=== PATIENT | female | born 1940 | race Caucasian/White ===

== ENCOUNTER 2017-07-21 20:53 | Emergency (ER) | payer MEDICARE, OTHER ==
--- NOTE | 2017-07-21 22:03 | RAD ---
HISTORY: All, patellar pain COMPARISONS: None VIEWS: 2, Frontal and lateral views of the right knee FINDINGS: BONE DENSITY: There is diffuse osteopenia. BONES: There is a mildly displaced transverse fracture of the patella. JOINTS: There is no arthropathy. ALIGNMENT: There is no dislocation. SOFT TISSUES: Unremarkable. OTHER FINDINGS: None. IMPRESSION: MILDLY DISPLACED TRANSVERSE PATELLAR FRACTURE
[2017-07-21] MEDS ORDERED: HYDROcodone/ACETAMIN 5-325 MG* 1 TAB ONE (22:57)
== END 2017-07-21 23:17 | disposition home or self-care (01) ==
LOC: UCEAST 20:53
DX: S82.031A Displaced transverse fracture of right patella, initial encounter for closed fracture (principal); W01.0XXA Fall on same level from slipping, tripping and stumbling without subsequent striking against object, initial encounter; Y93.9 Activity, unspecified; Y92.9 Unspecified place or not applicable; I10 Essential (primary) hypertension; E03.9 Hypothyroidism, unspecified; E78.5 Hyperlipidemia, unspecified; K21.9 Gastro-esophageal reflux disease without esophagitis
CPT/HCPCS: 99213; G0463

== ENCOUNTER 2017-07-26 06:15 | Inpatient (IN) | payer MEDICARE, OTHER ==
--- NOTE | 2017-07-23 22:08 | HP ---
HISTORY AND PHYSICAL: DATE OF ADMISSION/SURGERY: 07/26/17 ATTENDING SURGEON: Bony Pena MD * (DICTATED BY PATRIC HOOD) REASON FOR VISIT: Displaced patellar fracture, right patella . PROCEDURE: ORIF, right patella. HISTORY OF PRESENT ILLNESS: The patient is a pleasant female who presents today for initial evaluation after falling on cinder blocks over the weekend. She was seen in the ER where x-rays confirmed she had a dislocated patellar fracture of the right knee. Dr. Pena has planned surgical intervention for 07/26/17. PAST MEDICAL HISTORY: Positive for high blood pressure, elevated cholesterol, gout, generalized arthritis, hiatal hernia with associated indigestion/GERD, hypothyroidism. The patient denies OR, stroke, or diabetes. PAST SURGICAL HISTORY: Carpal tunnel in 1982 and 2013, hysterectomy in 1993, rotator cuff in 2003, bilateral hip replacements in 2004, 2007, right hand surgery in 2005. MEDICATIONS: 1. Aspirin 81 mg daily. 2. Simvastatin 40 mg daily. 3. Omeprazole 40 mg daily. 4. Naproxen 325 mg 1 tablet twice daily. 5. Lisinopril 20 mg daily. 6. Levothyroxine 88 mcg daily. ALLERGIES: LATEX GLOVES, which causes swelling and hives. FAMILY MEDICAL HISTORY: Father of natural causes at the age of 95. Mother of natural causes at the age of 97, history of Alzheimer's disease in her mother. SOCIAL HISTORY: The patient lives alone; however, has her daughter and son close by to help. She is retired. 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 REVIEW OF SYSTEMS: General: The patient denies fevers, chills, or night sweats. HEENT: No blurred vision, double vision, sore throat, runny nose, nosebleeds, hearing changes. Cardiac: No chest pain, heart palpitations, or shortness of breath. Pulmonary: No cough. No history of COPD. GI: No nausea , vomiting, constipation, diarrhea. Positive for GERD. : Negative for urinary tract infections, kidney stones. Musculoskeletal: Positive for generalized arthritis in knees and hands. Positive for right knee pain. No prior injuries to the right knee. Neurologic: Negative for dizziness, lightheadedness. No history of prior strokes or weaknesses. No paresthesias. Integument: Negative for skin lesions. No difficulty with wound healing. No easy bruising or bleeding. Hematologic: Negative for DVTs or PEs. Infectious Disease: No history of hepatitis, HIV, VRE, or MRSA. PHYSICAL EXAMINATION GENERAL: Well appearing, in no acute distress. Alert and oriented. Appears stated age. HEENT: Normocephalic, atraumatic. EOMI. CARDIAC: Regular rate and rhythm. No murmurs, gallops, or rubs. Negative edema in bilateral lower extremities. PULMONARY: Lungs clear to auscultation bilaterally. No crackles, rhonchi or wheezes. ABDOMEN: Soft, nontender, nondistended. Positive obesity. Negative CVA tenderness bilaterally. NEUROLOGIC: Sensation grossly intact to light touch, bilateral lower extremities. Posterior tibial pulses 2+ bilaterally. Negative Homans sign bilaterally. MUSCULOSKELETAL: Right knee with diffuse swelling surrounding the knee. Ecchymosis seen on the medial aspect. Straight leg raise, unable to perform. Tenderness over the patella. Skin intact. Range of motion limited due to pain. ASSESSMENT: Displaced patellar fracture, right knee. PLAN: The patient was arranged to undergo ORIF of the right patella on . Risks and benefits of the procedure were discussed by Dr. Pena to the patient who voiced full understanding. She will have preadmission testing arranged. She will contact us with any questions or concerns that she has in the future. PATRIC HOOD [id number]/[facility] #: [id number] [facility]ITALPipo
[~2017-07-26 06:15] MED LIST: Buffered Lidocaine 0.9% SYRIN* 5 ML/SYR SYRINGE INTRADERM ONE; Dexamethasone IV* 4 MG/ML 1 ML (4 MG) IV SLOW PU ONE; Famotidine IV* 10 MG/ML 2 ML (20 mg) IV ONE
[2017-07-26] MEDS ORDERED: ceFAZolin 2 GM PREMIX (*) 50 ML IVPB ONE (06:36)
[2017-07-26] MEDS ORDERED: Dexamethasone IV* 4 MG/ML 1 ML (4 MG) ONE (06:36)
[2017-07-26] MEDS ORDERED: Buffered Lidocaine 0.9% SYRIN* 5 ML/SYR SYRINGE ONE (06:36)
[2017-07-26] MEDS ORDERED: Famotidine IV* 10 MG/ML 2 ML (20 mg) ONE (06:36)
[2017-07-26] MEDS ORDERED: Bupivacaine 0.5% SDV PF* 30 ML VIAL ONE (07:13)
[2017-07-26 07:37] LABS: Albumin 4.2 g/dL (3.2-5.2); Calcium 9.2 mg/dL (8.6-10.3); EGFR African American 61.8 (>60); Globulin 2.8 g/dL (2-4); Total Bilirubin 1.1 mg/dL (0.2-1.0)
[2017-07-26] MEDS ORDERED: Propofol* 10 MG/ML 20 ML BTL IV PUSH ONE (07:51)
[2017-07-26] MEDS ORDERED: Lidocaine 2% PF * 5 ML VIAL ONE (07:51)
[2017-07-26] MEDS ORDERED: fentaNYL* 50 MCG/ML 2 ML VIAL (100 MCG VIAL) ONE ×5 (07:56→10:11)
[2017-07-26] MEDS ORDERED: EPHEDrine (Pressors)* 50 MG/ML VIAL ONE (08:02)
[2017-07-26] MEDS ORDERED: Ondansetron INJ* 2 MG/ML VIAL ONE (08:15)
[2017-07-26] MEDS ORDERED: oxyCODONE/Acetamin 5/325 MG* TAB PO PRN ×3 (08:28→09:34)
[2017-07-26] MEDS ORDERED: PROCHLORPERAZINE INJ 5 MG/ML 2 ML VIAL IV PRN (08:28)
[2017-07-26] MEDS ORDERED: HYDROcodone/ACETAMIN 5-325 MG* 1 TAB PO PRN (08:28)
--- NOTE | 2017-07-26 09:23 | RAD ---
INDICATION: Right knee patellar fracture, trauma, ORIF COMPARISONS: July 21, 2017 TECHNIQUE: Fluoroscopy was provided for a surgical procedure. Total fluoroscopy time is: 26.9 seconds FINDINGS: Spot images demonstrate internal fixation of the patella. IMPRESSION: FLUOROSCOPY WAS PROVIDED FOR A SURGICAL PROCEDURE CPT II Codes: 6045F
[2017-07-26] MEDS ORDERED: Temazepam CAP* 15 MG PO PRN (09:34)
[2017-07-26] MEDS ORDERED: Morphine INJ* 2 MG/ML 1 ML SYRINGE (TWO MG - NEW SYRINGE VERSION) IV PRN (09:34)
[2017-07-26] MEDS ORDERED: oxyCODONE TAB* 5 MG TAB PO PRN (09:34)
[2017-07-26] MEDS ORDERED: Bisacodyl SUPP* 10 MG SUPP PR PRN (09:34)
[2017-07-26] MEDS ORDERED: diPHENhydraMINE IV* 50 MG/ML 1 ml VIAL (BENADRYL) IV PRN (09:34)
[2017-07-26] MEDS ORDERED: Ondansetron INJ* 2 MG/ML VIAL IV PRN (09:34)
[2017-07-26] MEDS: fentaNYL* 50 MCG/ML 2 ML VIAL (100 MCG VIAL) IV PRN ×2 (09:52→10:00)
[2017-07-26 14:18] LABS: Hematocrit 33 % (35-47); Hemoglobin 10.9 g/dl (12.0-16.0)
[2017-07-26] MEDS: ceFAZolin 1 GM VIAL(*) 1 GM in NS 0.9% 50 ML* 50 ML IVPB SCH (16:22)
[2017-07-27] MEDS: ceFAZolin 1 GM VIAL(*) 1 GM in NS 0.9% 50 ML* 50 ML IVPB SCH ×2 (00:41→08:30)
--- NOTE | 2017-07-27 02:01 | OP ---
DATE OF OPERATION: 07/26/17 - ROOM #340 DATE OF : 38 SURGEON: Bony Pena MD JUNIOR PARALEGAL: PATRIC Fong ANESTHESIOLOGIST: Bj Mcneill MD ANESTHESIA: General endotracheal anesthesia. PRE-OP DIAGNOSIS: Right transverse displaced patellar fracture. POST-OP DIAGNOSIS: Right transverse displaced patellar fracture. OPERATIVE PROCEDURE: Open reduction internal fixation of right patellar fracture. IMPLANTS: Two Arthrex partially threaded cannulated screws and FiberTape. ESTIMATED BLOOD LOSS: 50 cc. SPECIMEN: None. COMPLICATIONS: None. STATUS: Stable from the operating room to the recovery room and then admitted to the floor. 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 In the office, the skin was intact, but she was unable to perform a straight leg raise. This plus the displacement led me to recommend surgical open reduction and internal fixation. We did also discuss nonoperative treatment alternative and after we discussed both the operative and nonoperative treatment, she decided she would like to perform surgery. The nature and risks of surgery were reviewed in careful details both in the office as well as in the preoperative holding area. Our discussion regarding the risks of the surgery included, but were not limited to infection, wound problems, malunion, nonunion, hardware problems, nerve injury, neuroma. RSD, persistent symptoms, need for further surgery and even the remote chance of a catastrophic complication. DESCRIPTION OF PROCEDURE: The patient was seen in the preoperative holding unit and informed consent was obtained. The appropriate extremity was marked. The patient was then brought to the operating room and the anesthesia was induced. The patient was carefully positioned on the table and all bony prominences were padded with great care. A chlorhexidine based pre-scrub was performed followed by a standard ChloraPrep, prepped and draped. A surgical safety pause was then conducted in which we confirmed the appropriate patient, extremity, planned procedure, availability of equipment, indication and administration of prophylactic antibiotics. DVT prophylaxis in the form of a compression boot was used on the nonsurgical extremity. We made an approximately 10 cm incision over the midline of the patella. Dissection was carefully carried down to the level of the patella and the fracture was identified. The fracture edges were clean and fractured hematoma was removed from the fracture site. There was minimal injury to the surrounding retinaculum. After the fracture was cleaned and the fracture edges are visible, the fracture was reduced with a large point of reduction clamp. The reduction was confirmed on fluoroscopy in both the AP and lateral views as well as by direct visualization. Once satisfied, 2 guidewires for the Arthrex cannulated patellar fracture screws were placed perpendicular to the fracture plane. A third guidewire was also placed at this time just to help maintain the reduction during placement of the hardware. The length of the screws was measured off of the guidewire and the decision to use length 32-mm screws was used. The guidewires were overdrilled and then two 32-mm partially threaded cannulated lag screws were placed in the antegrade fashion. There was good purchase and compression of the fracture site. These were again confirmed to me in good placement on fluoroscopy. The point of reduction clamp was removed and the guidewires were removed and the fracture reduction was maintained. Syed needle attached to a FiberTape suture was then placed in a [id number] fashion to create a tension band construct and this was tied tightly. Again, fluoroscopy was used to confirm no change in the reduction. The knee was then ranged from 0 to 60 degrees with no gaping at the fracture sites at all. Fluoroscopy was also then utilized to confirm no fracture gapping with range of motion of 0 to 60 degrees. There was no gaping at the fracture site fluoroscopically. What could be repaired in the retinaculum was repaired with 2 -0 Vicryl sutures, then the wound was thoroughly irrigated. The wound was then closed in a layered fashion utilizing 2-0 Vicryl for the deep layer, 3-0 Monocryl for the subdermal layer, susan on the skin. Sterile dressing was applied. ANA stocking was then applied and a [place] brace locked in extension was placed on the patient prior to awakening from the anesthesia. The patient was awakened from the anesthesia and taken to recovery room without any complication. All needle and sponge counts were correct at the end of the case. ATTESTATION: I attest that I was present, scrubbed, and performed the entire procedure myself. I also attest that Natalie Whelan's assistance was necessary. POSTOPERATIVE PLAN: Azucena will remain with the knee locked in extension for 1 month and then we will begin increasing her range of motion in the Beto brace. She can be weightbearing as tolerated in the Beto brace as long as it is locked in extension. We will utilize ANA stockings, pneumoboots, and aspirin 325 mg p.o. daily for DVT prophylaxis. I will see her back in 2 weeks postoperatively for likely suture removal. [id number]/[facility] #: [id number] MTDD
[2017-07-27] MEDS ORDERED: Levothyroxine TAB* 100 MCG TAB PO SCH (06:00)
[2017-07-27 07:29] LABS: Calcium 8.6 mg/dL (8.6-10.3); EGFR African American 65.2 (>60); EGFR Non-African American 50.7 (>60); Potassium 4.2 mmol/L (3.5-5.0)
[2017-07-27] MEDS ORDERED: Omeprazole CAP* 20 MG PO SCH (07:30)
[2017-07-27 07:41] VITALS: BP 133/64
--- NOTE | 2017-07-27 08:06 | PN ---
Progress Note - Progress Note Date of Service: 07/27/17 SOAP: Subjective: Pain worse overnight as local anesthetic wore off. Otherwise doing well Objective: Temp Pulse Resp BP Pulse Ox 97.4 F 65 20 133/64 98 07/27/17 07:32 07/27/17 07:32 07/27/17 07:32 07/27/17 07:32 07/27/17 07:32 Dressing c/d/i deana locked in ext +TA EHL FHL G/S +DP SILT foot Assessment: []Doing well POD1 right patella ORIF Plan: [place] locked in extension at all times WBAT PT consult ANA stockings, pneumoboots and aspirin 325mg po daily for DVT prophylaxis periop abx pain control d/c home when clears PT
[2017-07-27] MEDS ORDERED: Lisinopril TAB* 10 MG PO SCH (09:00)
[2017-07-27] MEDS ORDERED: Aspirin EC Low Dose* 81 MG TAB.EC PO SCH (09:00)
[2017-07-27] MEDS ORDERED: Atorvastatin* 20 MG TAB PO SCH (09:00)
[2017-07-27] MEDS ORDERED: Aspirin TAB* 325 MG PO SCH (09:00)
[2017-07-27] MEDS ORDERED: traMADol TAB* 50 MG PO PRN (10:48)
--- NOTE | 2017-07-28 00:16 | DS ---
DISCHARGE SUMMARY: DATE OF ADMISSION: 07/26/17 DATE OF DISCHARGE: 07/27/17 ATTENDING PHYSICIAN: Dr. Bony Pena * (DICTATED BY PATRIC NARAYANAN) ADMISSION DIAGNOSIS: Transverse displaced right patellar fracture. DISCHARGE DIAGNOSIS: Transverse displaced right patellar fracture. SURGERY PERFORMED: Open reduction and internal fixation, displaced right patellar fracture. HOSPITAL COURSE: The patient is a 77-year-old female, who fell at her home on [employer] sustaining a displaced patellar fracture last weekend. She was seen in the office by Dr. Pena and options of surgical and nonsurgical treatment was discussed. The patient elected to proceed with surgical intervention and was taken to the operating room for the aforementioned procedure on 07/26/17. She tolerated the procedure well and left the operating room in stable condition. Postoperatively, she did extremely well, bearing weight as tolerated on the right lower extremity with her brace locked at full extension. She was tolerating pain with tramadol and was found to be stable medically and orthopedically for discharge to home on 07/27/17. CONDITION ON DISCHARGE: Temperature 97.4, pulse 65, respiratory rate 20, O2 saturation 98% on room air, blood pressure 133/64. Her right knee dressing was clean and dry. She was comfortable in the brace, locked in full extension and was bearing weight as tolerated using a walker without difficulty. Her neurovascular status is intact in the right lower extremity. Her calf is soft and nontender. PLAN: Discharged to home. She will follow up in the office with Dr. Pena as scheduled 08/13/17. She will be continued on aspirin 325 mg p.o. daily for DVT prophylaxis. A prescription of tramadol 50 mg q.6 hours p.r.n. pain was called into her pharmacy today. She will call the office if she has any increased pain, fever, chills, swelling of the calf or calf pain. PATRIC NARAYANAN [id number]/[facility] #: [id number] MTDD
== END 2017-07-27 12:00 | disposition home or self-care (01) | DRG 517 ==
LOC: INTOOBSV 06:15 → AA 06:15 → OBSVTOIN 09:45 → SSU 11:36
PROVIDERS: ADMIT Orthopaedic Surgery; ATTEND Orthopaedic Surgery
PROC: 0QSD04Z Reposition Right Patella with Internal Fixation Device, Open Approach (ICD-10-PCS; principal; 2017-07-26 07:45)
DX: S82.031A Displaced transverse fracture of right patella, initial encounter for closed fracture (principal); E03.9 Hypothyroidism, unspecified; I10 Essential (primary) hypertension; W18.30XA Fall on same level, unspecified, initial encounter; Y92.009 Unspecified place in unspecified non-institutional (private) residence as the place of occurrence of the external cause; E78.00 Pure hypercholesterolemia, unspecified; M10.9 Gout, unspecified; M13.80 Other specified arthritis, unspecified site; K44.9 Diaphragmatic hernia without obstruction or gangrene; K21.9 Gastro-esophageal reflux disease without esophagitis; Z96.643 Presence of artificial hip joint, bilateral; Z79.82 Long term (current) use of aspirin; Z79.899 Other long term (current) drug therapy; Z91.040 Latex allergy status
CPT/HCPCS: 36415; 80048; 80053; 85014; 85018; A9270-GY; C1713; G8987-GO-CJ; G8988-GO-CI; J0690; J1100; J2270; J2405; J2704; J3010